=== PATIENT | male | born 1975 | race Caucasian/White ===

== ENCOUNTER 2020-02-19 12:44 | Outpatient (CLI) | payer BC ==
[2020-02-19] MEDS ORDERED: Gadobenate Dimeglumine 529 MG/1 ML (20ML VIAL) ONE (13:00)
[2020-02-19] MEDS ORDERED: EPINEPHrine 1 MG/ML AMP ONE (13:00)
[2020-02-19] MEDS ORDERED: Lidocaine 1% PF 10 ML AMP ONE (13:00)
[2020-02-19] MEDS ORDERED: Iopamidol 300 61% 50 ML VIAL FS ONE (13:00)
--- NOTE | 2020-02-19 15:05 | RAD ---
Arthrogram left shoulder HISTORY: Internal derangement. Shoulder. FINDINGS: After explaining the procedure and answering all questions, the anterior aspect of the left shoulder was prepped and draped in usual sterile fashion. Sterile technique, buffered local anesthesia, fluoroscopic guidance, and an anterior approach were used to carefully advance a 22-gauge needle to the joint capsule at the level of the humeral head. Approximately 7 cc of a liquid mixture containing normal saline, 1% lidocaine, iodinated contrast, and small amounts of gadolinium a nd epinephrine were then instilled into the joint capsule under fluoroscopic control. Needle was removed. Contrast remained within the joint capsule. Patient tolerated the procedure well and was tra nsferred to MRI in good condition for further imaging. IMPRESSION : Technically successful arthrogram left shoulder. MRI is pending.
--- NOTE | 2020-02-19 15:09 | MRI ---
MR ARTHROGRAM LEFT SHOULDER: 02/19/20 PROVIDED CLINICAL HISTORY: Left shoulder instability. FINDINGS: The components of the rotator cuff appear intact. The long head biceps tendon appears intact and is n ormally located. There is linear contrast signal intensity interposed between the posterior glenoid labrum and subjace nt articular cartilage, compatible with nondisplaced tear. There is no stripping of the scapular lazaro osteum evident. No cartilaginous or bony involvement is evident. This is fairly localized in the ramone on of the equator. This may extend to involve the posterior/superior labrum to a lesser degree. The r emainder of the glenoid labrum appears normal. No articular cartilage defect is apparent. Acromioclavicular joint osteoarthrosis is demonstrated without significant mass effect upon the subj acent supraspinatus. No focal concerning regional marrow or muscular signal abnormality is apparent. IMPRESSION: 1. Nondisplaced posterior labral tear. 2. Acromioclavicular joint osteoarthrosis. POS: [facility]
== END 2020-02-19 12:45 | disposition home or self-care (01) ==
LOC: RAD 12:44
PROVIDERS: ATTEND Orthopaedic Surgery
DX: M25.312 Other instability, left shoulder (principal); M19.012 Primary osteoarthritis, left shoulder; S43.432A Superior glenoid labrum lesion of left shoulder, initial encounter
CPT/HCPCS: 23350

== ENCOUNTER 2020-03-04 09:29 | Outpatient (CLI) | payer BC ==
--- NOTE | 2020-03-04 10:24 | MRI ---
MRI BRAIN WITHOUT CONTRAST Date: 03/04/2020 HISTORY: Left upper extremity weakness and poor vision of the left eye. FINDINGS: No restricted diffusion is seen. No evidence of infarct, hemorrhage, midline shift, or abnormal extra -axial fluid collections are seen. The ventricular size is appropriate and the basilar cisterns are p atent. No significant signal abnormalities are seen on the highly sensitive FLAIR images. No blood pr oducts are noted on the gradient echo sequences. The visualized paranasal sinuses and mastoid air elieser ls are well aerated. IMPRESSION: No evidence of acute intracranial process. POS: [facility]
--- NOTE | 2020-03-04 10:54 | MRI ---
MRI Cervical spine without contrast: HISTORY: Left upper extremity weakness and pain. COMPARISON: None FINDINGS: The craniocervical junction is unremarkable. No significant cord signal abnormality. Paravertebral soft tissues have a normal appearance and normal signal intensity. C1-2:No significant stenosis. C2-3: There is no disc bulge or disc herniation. The central spinal canal and neural foramina are pat ent. C3-4: There is no disc bulge or disc herniation. The central spinal canal and neural foramina are pat ent. C4-5: There is no disc bulge or disc herniation. The central spinal canal and neural foramina are pat ent. C5-6: Loss of intervertebral disc height. Mild disc osteophyte complex is present which narrows the v entral subarachnoid space. No significant neural foraminal is present. C6-7: Loss of intervertebral disc height. There is broad-based disc osteophyte complex with with left paracentral disc protrusion associated uncinate process hypertrophy. Findings result in moderate to severe left-sided neural foraminal narrowing. Mild right-sided neural foraminal narrowing is prese nt. There is effacement of the left ventrolateral aspect of the subarachnoid space. The exiting nerve root at this level is likely affected. C7-T1: There is no disc bulge or disc herniation. The central spinal canal and neural foramina are pa tent. IMPRESSION: Disc osteophyte complex with left paracentral disc protrusion and uncinate process hypertrophy at the C6-7 results in moderate to severe left-sided neural foraminal narrowing, and the exiting nerve root on the left is likely affected.
== END 2020-03-04 09:30 | disposition home or self-care (01) ==
LOC: TBSIIMAG 09:29
PROVIDERS: ATTEND Orthopaedic Surgery
DX: M24.112 Other articular cartilage disorders, left shoulder (principal); H35.00 Unspecified background retinopathy; R29.898 Other symptoms and signs involving the musculoskeletal system; M48.02 Spinal stenosis, cervical region; M25.78 Osteophyte, vertebrae
CPT/HCPCS: 70551; 72141

== ENCOUNTER 2021-06-05 09:56 | Outpatient (CLI) | payer BC ==
[2021-06-05] MEDS ORDERED: Iopamidol 370 76% 100 ML VIAL ONE (11:07)
== END 2021-06-05 09:57 | disposition home or self-care (01) ==
LOC: BICCT 09:56
PROVIDERS: ATTEND Internal Medicine Gastroenterology
DX: K63.89 Other specified diseases of intestine (principal)
CPT/HCPCS: 74160

== ENCOUNTER 2023-01-01 05:17 | Inpatient (IN) | payer BC ==
[2023-01-01] MEDS ORDERED: Morphine 10 MG/ML VIAL ONE (06:22)
[2023-01-01] MEDS ORDERED: Ketorolac Tromethamine 30 MG/ML VIAL ONE ×2 (06:22→18:06)
[2023-01-01] MEDS ORDERED: Piperacillin/Tazobactam 4.5 GM VIAL ONE (06:22)
[2023-01-01 06:27] LABS: Hemoglobin 13.7 g/dL (14.0-18.0); Mean Corpuscular HGB CONC 35.2 g/dL (32.0-36.0); Mean Corpuscular Hemoglobin 36.9 pg (27.0-31.0); Mean Platelet Volume 7.1 fL (7.4-10.4); Platelet Count 135 10x3/uL (130-400); RBC Distribution Width 11.7 % (11.5-14.5); White Blood Cell (WBC) Count 4.2 10x3/uL (4.8-10.8)
[2023-01-01 06:29] LABS: Band 6 % (5-11); Hypochromia SLIGHT = 6-15 cells (100X) (0-5/hpf); Lymphocytes 15 % (21-51); MDiff Complete? YES; Monocytes 7 % (0-10); Neutrophil 59 % (42-75); Platelet Morphology Comment Appears Adequate; Reactive Lymphocytes 13 % (0-10)
[2023-01-01 06:30] LABS: ALT (SGPT) 52 U/L (8-55); AST (SGOT) 36 U/L (5-34); Alkaline Phosphatase 78 U/L (40-110); Anion Gap 14 mmol/L (10-20); BUN (Urea Nitrogen) 8 mg/dL (8.9-20.6); Bilirubin, Total 1.1 mg/dL (0.2-1.2); Calc. Creatinine Clearance 0 mL/min (70-130); Calcium 8.7 mg/dL (7.8-10.44); Carbon Dioxide 22 mmol/L (22-29); Chloride 93 mmol/L (98-107); Estimated GFR 109; Globulin 2.3 g/dL (2.4-3.5); Glucose 83 mg/dL (70-105); Potassium 4.1 mmol/L (3.5-5.1); Protein, Total 6.3 g/dL (6.0-8.3); Sodium 125 mmol/L (136-145)
[2023-01-01] MEDS ORDERED: Boostrix 0.5 ML (Tdap) VIAL (>/=7 yrs of age) ONE (06:46)
[2023-01-01 06:57] LABS: PTT 26.1 sec (22.9-36.1)
[2023-01-01] MEDS ORDERED: Vancomycin 1.5 GRAM/300 ML BAG 1.5 GM in Premix Bag 1 BAG IVPB SCH (07:00)
[2023-01-01] MEDS ORDERED: Lorazepam 2 MG/ML VIAL IM PRN (09:02)
[2023-01-01] MEDS ORDERED: Lorazepam 1 MG TAB PO PRN (09:02)
[2023-01-01] MEDS ORDERED: Ondansetron ODT 4 MG TAB PO PRN (09:02)
[2023-01-01] MEDS ORDERED: Electrolyte Replacement Protocol FS PRN ×2 (09:15→10:00)
[2023-01-01 09:29] LABS: Magnesium 1.6 mg/dL (1.6-2.6); Phosphorus 3.3 mg/dL (2.3-4.7)
[2023-01-01] MEDS ORDERED: Folic Acid 1 MG TAB PO SCH (09:45)
[2023-01-01] MEDS ORDERED: Multivit, Therapeutic 1 TAB PO SCH (09:45)
[2023-01-01 09:55] VITALS: BMI 23.0
[2023-01-01] MEDS ORDERED: Magnesium 2 GM/50 ML(in water) 2 GM in Premix Bag 1 BAG IVPB SCH (10:00)
[2023-01-01] MEDS: Doxycycline 100 MG in Sodium Chloride 0.9% 100 ML IVPB SCH ×2 (10:21→22:18)
[2023-01-01] MEDS: Thiamine HCl 200 MG/2 ML VIAL SLOW IVP SCH (10:41)
[2023-01-01] MEDS: Folic Acid 1 MG, Thiamine HCl 100 MG in Dextrose 5 %-0.45 % NaCl 1,000 ML IV SCH (10:41)
[2023-01-01] MEDS ORDERED: Piperacillin/Tazobactam 3.375 GM in Sodium Chloride 0.9% 100 ML IVPB SCH ×2 (11:00→12:00)
[2023-01-01 11:17] LABS: Potassium, Urine 12.8 mmol/L; Sodium, Urine Less than 20 mmol/L (Not Available)
[2023-01-01] MEDS ORDERED: Ampicillin/Sulbactam 3 GM in Sodium Chloride 0.9% 100 ML IVPB SCH (12:00)
[2023-01-01 13:23] LABS: Syphilis Antibody Nonreactive (Nonreactive); Syphilis Antibody Index 0.06 S/CO (<1.00 Non-Reactive)
[2023-01-01] MEDS ORDERED: Bupivacaine 0.25% HCL 30 ML VIAL ONE (17:28)
[2023-01-01] MEDS ORDERED: Neomycin-Polymyxin 1 ML AMP ONE (17:28)
[2023-01-01] MEDS ORDERED: Bacitracin Zinc Ointment 30 gm TUBE ONE (17:33)
[2023-01-01] MEDS ORDERED: fentaNYL PF 100 MCG/2 ML SYRINGE ONE (17:45)
[2023-01-01] MEDS ORDERED: Piperacillin/Tazobactam 3.375 GM VIAL ONE (17:48)
[2023-01-01] MEDS ORDERED: Sodium Chloride 0.9% 100 ML ONE (17:48)
[2023-01-01] MEDS ORDERED: Dexamethasone 20 MG/5 ML VIAL ONE (18:06)
[2023-01-01] MEDS ORDERED: Lidocaine 1% PF 5 ML VIAL ONE (18:06)
[2023-01-01] MEDS ORDERED: PROPOFOL 200 MG/20 ML VIAL ONE (18:06)
[2023-01-01] MEDS ORDERED: Ondansetron PF 4 MG/2 ML Vial ONE (18:06)
[2023-01-01] MEDS ORDERED: Promethazine HCl 25 MG/ML VIAL IM PRN (18:52)
[2023-01-01] MEDS ORDERED: HYDROmorphone 2 MG/ML VIAL SLOW IVP PRN (18:52)
[2023-01-01] MEDS ORDERED: Morphine Sulfate 2 MG/ML SYRINGE SLOW IVP PRN (18:52)
[2023-01-01] MEDS ORDERED: Ondansetron HCl/PF 4 MG/2 ML Vial IVP PRN (18:52)
[2023-01-01] MEDS ORDERED: PACU-Morphine 4MG/ML VIAL SLOW IVP PRN (18:52)
[2023-01-01] MEDS: Cefepime 2 GM in Sodium Chloride 0.9% 100 ML IVPB SCH (20:54)
[2023-01-01] MEDS: traMADol HCl 50 MG TAB PO PRN (21:31)
[2023-01-01 23:08] LABS: HIV (1/2) Antibody/Antigen Non-Reactive (NonReactive); HIV 1/2 INDEX 0.14 S/CO (<1.00)
[2023-01-02 06:35] LABS: Hemoglobin A1c 4.8 % (4.0-6.0)
[2023-01-02 06:38] LABS: #Lymphocytes 0.4 thou/uL (1.20-3.40); #Monocytes 0.3 thou/uL (0.11-0.59); #Neutrophils 3.1 thou/uL (1.40-6.50); %Eosinophils 0.2 % (0.0-10.0); %Lymphocytes 11.4 % (21.0-51.0); %Monocytes 7.8 % (0.0-10.0); %Neutrophils 80.7 % (42.0-75.0); Hemoglobin 13.1 g/dL (14.0-18.0); Mean Corpuscular HGB CONC 31.7 g/dL (32.0-36.0); Mean Platelet Volume 7.7 fL (7.4-10.4); Platelet Count 135 10x3/uL (130-400); RBC Distribution Width 11.7 % (11.5-14.5); Red Blood Cell (RBC) Count 3.84 mill/uL (4.70-6.10); White Blood Cell (WBC) Count 3.8 10x3/uL (4.8-10.8)
[2023-01-02 06:43] LABS: Magnesium 2.1 mg/dL (1.6-2.6)
[2023-01-02 07:34] LABS: ALT (SGPT) 39 U/L (8-55); AST (SGOT) 31 U/L (5-34); Albumin 3.6 g/dL (3.5-5.0); Alkaline Phosphatase 66 U/L (40-110); Anion Gap 15 mmol/L (10-20); BUN (Urea Nitrogen) 9 mg/dL (8.9-20.6); Bilirubin, Total 0.4 mg/dL (0.2-1.2); Calc. Creatinine Clearance 108 mL/min (70-130); Calcium 8.8 mg/dL (7.8-10.44); Carbon Dioxide 20 mmol/L (22-29); Chloride 103 mmol/L (98-107); Estimated GFR 103; Globulin 2.4 g/dL (2.4-3.5); Glucose 140 mg/dL (70-105); Potassium 4.4 mmol/L (3.5-5.1); Sodium 134 mmol/L (136-145)
[2023-01-02] MEDS: Thiamine HCl 200 MG/2 ML VIAL SLOW IVP SCH (08:34)
[2023-01-02] MEDS: Folic Acid 1 MG TAB PO SCH (08:35)
[2023-01-02] MEDS: Nicotine 21 MG PATCH TD SCH (08:35)
[2023-01-02] MEDS: Multivit, Therapeutic 1 TAB PO SCH (08:35)
[2023-01-02] MEDS: Cefepime 2 GM in Sodium Chloride 0.9% 100 ML IVPB SCH ×2 (08:36→20:58)
[2023-01-02] MEDS: Folic Acid 1 MG, Thiamine HCl 100 MG in Dextrose 5 %-0.45 % NaCl 1,000 ML IV SCH (10:25)
[2023-01-02] MEDS: Doxycycline 100 MG in Sodium Chloride 0.9% 100 ML IVPB SCH ×2 (10:25→21:57)
[2023-01-02] MEDS ORDERED: Lorazepam 2 MG/ML VIAL SLOW IVP SCH (17:30)
[2023-01-02] MEDS: traMADol HCl 50 MG TAB PO PRN (17:35)
[2023-01-02] MEDS: Lorazepam 1 MG TAB PO PRN (20:58)
[2023-01-03 07:01] LABS: ALT (SGPT) 38 U/L (8-55); AST (SGOT) 34 U/L (5-34); Albumin 3.3 g/dL (3.5-5.0); Alkaline Phosphatase 55 U/L (40-110); Anion Gap 13 mmol/L (10-20); BUN (Urea Nitrogen) 8 mg/dL (8.9-20.6); Bilirubin, Total 0.3 mg/dL (0.2-1.2); Calc. Creatinine Clearance 116 mL/min (70-130); Calcium 8.7 mg/dL (7.8-10.44); Carbon Dioxide 23 mmol/L (22-29); Chloride 106 mmol/L (98-107); Estimated GFR 107; Globulin 2.3 g/dL (2.4-3.5); Glucose 85 mg/dL (70-105); Potassium 4.4 mmol/L (3.5-5.1); Protein, Total 5.6 g/dL (6.0-8.3); Sodium 138 mmol/L (136-145)
[2023-01-03] MEDS: Multivit, Therapeutic 1 TAB PO SCH (08:27)
[2023-01-03] MEDS: Folic Acid 1 MG TAB PO SCH (08:27)
[2023-01-03] MEDS: Doxycycline 100 MG in Sodium Chloride 0.9% 100 ML IVPB SCH ×2 (08:27→22:39)
[2023-01-03] MEDS: Lorazepam 1 MG TAB PO PRN (08:27)
[2023-01-03] MEDS: Cefepime 2 GM in Sodium Chloride 0.9% 100 ML IVPB SCH ×2 (08:28→21:10)
[2023-01-03] MEDS: Nicotine 21 MG PATCH TD SCH (08:29)
[2023-01-03] MEDS ORDERED: Lorazepam 1 MG TAB PO PRN (09:02)
[2023-01-03] MEDS: Folic Acid 1 MG, Thiamine HCl 100 MG in Dextrose 5 %-0.45 % NaCl 1,000 ML IV SCH (11:58)
[2023-01-03] MEDS: Thiamine HCl 200 MG/2 ML VIAL SLOW IVP SCH (11:58)
[2023-01-03] MEDS ORDERED: Morphine 4 MG/ML VIAL SLOW IVP PRN (18:13)
[2023-01-03] MEDS: traMADol HCl 50 MG TAB PO PRN (21:07)
[2023-01-04] MEDS: Folic Acid 1 MG TAB PO SCH (08:48)
[2023-01-04] MEDS: Thiamine 100 MG TAB PO SCH (08:48)
[2023-01-04] MEDS: Cefepime 2 GM in Sodium Chloride 0.9% 100 ML IVPB SCH ×2 (08:48→20:50)
[2023-01-04] MEDS: Doxycycline 100 MG in Sodium Chloride 0.9% 100 ML IVPB SCH ×2 (08:48→20:51)
[2023-01-04] MEDS: Multivit, Therapeutic 1 TAB PO SCH (08:48)
[2023-01-04] MEDS ORDERED: Lorazepam 0.5 MG TAB PO PRN (09:02)
[2023-01-04] MEDS: Nicotine 21 MG PATCH TD SCH (09:41)
[2023-01-04] MEDS: Folic Acid 1 MG, Thiamine HCl 100 MG in Dextrose 5 %-0.45 % NaCl 1,000 ML IV SCH (13:29)
[2023-01-04] MEDS ORDERED: fentaNYL PF 100 MCG/2 ML SYRINGE ONE (16:27)
[2023-01-04] MEDS ORDERED: Bacitracin Zinc Ointment 30 gm TUBE ONE (16:33)
[2023-01-04] MEDS ORDERED: Bupivacaine PF 0.5% 30 ML VIAL ONE (16:33)
[2023-01-04] MEDS ORDERED: PROPOFOL 200 MG/20 ML VIAL ONE (16:49)
[2023-01-04] MEDS ORDERED: Lidocaine 1% PF 5 ML VIAL ONE (16:49)
[2023-01-04] MEDS ORDERED: Ondansetron PF 4 MG/2 ML Vial ONE (16:49)
[2023-01-04] MEDS ORDERED: Dexamethasone 20 MG/5 ML VIAL ONE (16:49)
[2023-01-04] MEDS ORDERED: Meperidine HCl/PF 25 MG/ML VIAL SLOW IVP PRN (17:49)
[2023-01-04] MEDS ORDERED: Ondansetron HCl/PF 4 MG/2 ML Vial IVP PRN (17:49)
[2023-01-04] MEDS ORDERED: HYDROmorphone 2 MG/ML VIAL SLOW IVP PRN (17:49)
[2023-01-04] MEDS ORDERED: Promethazine HCl 25 MG/ML VIAL IM PRN (17:49)
[2023-01-04] MEDS ORDERED: Morphine Sulfate 2 MG/ML SYRINGE SLOW IVP PRN (17:49)
[2023-01-04] MEDS ORDERED: Ketorolac Tromethamine 30 MG/ML VIAL IVP PRN (17:49)
[2023-01-04] MEDS ORDERED: Ketorolac Tromethamine 30 MG/ML VIAL ONE (18:12)
[2023-01-04] MEDS ORDERED: Morphine 4 MG/ML VIAL SLOW IVP PRN (18:13)
[2023-01-04] MEDS: traMADol HCl 50 MG TAB PO PRN (23:26)
[2023-01-05] MEDS: Folic Acid 1 MG TAB PO SCH (08:49)
[2023-01-05] MEDS: Cefepime 2 GM in Sodium Chloride 0.9% 100 ML IVPB SCH (08:49)
[2023-01-05] MEDS: Multivit, Therapeutic 1 TAB PO SCH (08:49)
[2023-01-05] MEDS: Thiamine 100 MG TAB PO SCH (08:50)
[2023-01-05] MEDS: Nicotine 21 MG PATCH TD SCH (08:51)
[2023-01-05 10:11] VITALS: BP 135/84; TEMP 98.5
== END 2023-01-05 11:53 | disposition home or self-care (01) | DRG 506 ==
LOC: ERS 05:17 → T4-B 09:22
PROVIDERS: ADMIT Internal Medicine; ATTEND Family Medicine
PROC: 0R9W0ZZ Drainage of Right Finger Phalangeal Joint, Open Approach (ICD-10-PCS; principal; 2023-01-01)
PROC: 0RBW0ZZ Excision of Right Finger Phalangeal Joint, Open Approach (ICD-10-PCS; 2023-01-01)
PROC: 0RBW0ZZ Excision of Right Finger Phalangeal Joint, Open Approach (ICD-10-PCS; 2023-01-04)
PROC: 0LQ70ZZ Repair Right Hand Tendon, Open Approach (ICD-10-PCS; 2023-01-04)
DX: M00.9 Pyogenic arthritis, unspecified (principal); L03.113 Cellulitis of right upper limb; E87.1 Hypo-osmolality and hyponatremia; L02.413 Cutaneous abscess of right upper limb; I10 Essential (primary) hypertension; B95.7 Other staphylococcus as the cause of diseases classified elsewhere; Z90.49 Acquired absence of other specified parts of digestive tract; F17.210 Nicotine dependence, cigarettes, uncomplicated; W56.51XA Bitten by other fish, initial encounter; Z79.899 Other long term (current) drug therapy
CPT/HCPCS: 36415; 80053; 82436; 83036; 83735; 83930; 83935; 84100; 84133; 84300; 85025; 85610; 85652; 85730; 86140; 86780; 87040; 87070; 87076; 87077; 87186; 87205; 87389; 90715; 93005; J0692; J1100; J1885; J2060; J2270; J2405; J2543; J2704; J3370; J3411; J3475; J3490; J7042; S0020